=== PATIENT | male | born 1940 | race Caucasian/White ===

== ENCOUNTER → 2016-10-13 | Outpatient (CLI) | payer BC ==
[~2016-10-13] VITALS: Ht 167.6 cm; Wt 73.2 kg
[~2016-10-13] MED LIST: AMLODIPINE BESY10 MG PO; CALCITRIOL0.25 MCG PO; LO-DOSE ASPIRIN81 M2 PO; NABI650T PO; PRAVASTATIN SOD80 MG PO; VITAMIN D31000 UNIT PO
== END | disposition home or self-care (01) ==
LOC: OPR 07:53 → EDSTATUS 09:00
PROC: 0TB13ZX Excision of Left Kidney, Percutaneous Approach, Diagnostic (ICD-10-PCS; principal; 2016-10-13)
DX: R80.9 Proteinuria, unspecified (principal)
CPT/HCPCS: 77012; 88305 90; 88313 90; 88346 90; 88348 90; J3010

== ENCOUNTER → 2016-12-10 | Outpatient (CLI) | payer BC | END | disposition home or self-care (01) | LOC: CDC 13:32 | DX: R94.31 Abnormal electrocardiogram [ECG] [EKG] (principal); Z01.810 Encounter for preprocedural cardiovascular examination | CPT/HCPCS: 93000 ==

== ENCOUNTER 2016-12-31 10:40 | Day surgery (SDC) | payer BC ==
[~2016-12-31] VITALS: Ht 165.1 cm; Wt 71.7 kg
[~2016-12-31 10:40] MED LIST changes: +ACTHAR H.P80 UNIT/1 IM; +DOXAZOSIN MESYLA2 MG PO
[2016-12-31 11:07] VITALS: BP 147/76
[2016-12-31 11:27] LABS: HEMATOCRIT 36.3 % (38.0-50.0); MCH 27.8 PG (29.0-34.0); MCHC 33.1 G/DL (30.0-36.0); MEAN PLAT.VOLUME 9.6 uM^3 (9.0-12.4); PLATELET COUNT 303 K/uL (156-360); RBC DIS.WIDTH-CV 14.7 % (11.8-14.6); RBC DIS.WIDTH-SD 45.3 % (39-53); RED BLOOD COUNT 4.32 M/uL (4.00-5.50); WHITE BLOOD COUNT 11.3 K/uL (4.1-10.2)
[2016-12-31 11:53] LABS: ANION GAP 12 MEQ/L (2-14); CHLORIDE 107 MEQ/L (99-109); GFR ESTIMATE (CALCULATED) 11 mL/min/; GLUCOSE 165 mg/dL (70-99); POTASSIUM 4.2 MEQ/L (3.7-5.4); SAMPLE HEMOLYSIS CHECK 0; SAMPLE ICTERIC CHECK 0; SAMPLE LIPEMIA CHECK 0; SODIUM 142 MEQ/L (136-147); UREA NITROGEN (BUN) 52 mg/dL (9-23)
[2016-12-31 15:40] VITALS: BP 167/79
[2016-12-31 16:42] VITALS: BP 134/79
== END 2016-12-31 16:49 | disposition home or self-care (01) ==
LOC: SDC 10:40
PROVIDERS: Surgery
DX: I12.0 Hypertensive chronic kidney disease with stage 5 chronic kidney disease or end stage renal disease (principal); N18.6 End stage renal disease; Z87.891 Personal history of nicotine dependence; Z79.82 Long term (current) use of aspirin
CPT/HCPCS: 80048; 85027; J0131; J0690; J1100; J1644; J2405; J2720; J3010

== ENCOUNTER 2017-02-06 00:26 | Inpatient (IN) | payer BC ==
[2017-02-06] VITALS (21 sets, daily range): BP systolic 115–148; BP diastolic 57–86
[~2017-02-06] VITALS: Ht 165.1 cm; Wt 65.2 kg
[~2017-02-06 00:26] MED LIST changes: -ACTHAR H.P80 UNIT/1 IM; +ACTHAR H.P80 UNIT/1 SC
[2017-02-06 01:40] LABS: HEMATOCRIT 30.4 % (38.0-50.0); MCH 28.6 PG (29.0-34.0); MCHC 32.9 G/DL (30.0-36.0); MCV 86.9 FL (86-99); MEAN PLAT.VOLUME 11.1 uM^3 (9.0-12.4); PLATELET COUNT 212 K/uL (156-360); RBC DIS.WIDTH-CV 15.8 % (11.8-14.6); RBC DIS.WIDTH-SD 50.1 % (39-53); WHITE BLOOD COUNT 19.2 K/uL (4.1-10.2)
[2017-02-06 01:49] LABS: CHLORIDE 103 mEq/L (99-109); POTASSIUM 4.7 mEq/L (3.7-5.4); SODIUM 138 mEq/L (136-147)
[2017-02-06 01:50] LABS: CARBON DIOXIDE (BICARBONATE) 17.9 MEQ/L (20-31)
[2017-02-06 01:51] LABS: GLUCOSE 173 mg/dL (70-99)
[2017-02-06 01:52] LABS: D-DIMER ELISA 1.26 mg/L FEU (< 0.57)
[2017-02-06 01:52] LABS: ANION GAP 19 MEQ/L (2-14)
[2017-02-06 01:54] LABS: GFR ESTIMATE (CALCULATED) 9 mL/min/
[2017-02-06 01:57] LABS: UREA NITROGEN (BUN) 117 mg/dL (9-23)
[2017-02-06 02:00] LABS: BASE EXCESS -8.3 mEq/L (-3 to +3); CARBOXY HGB 0.8 % (0-5); COMMENTS - BLOOD GASES A+C+; DEVICE 840VENT; FI02 100 %; METHEMOGLOBIN 0.9 % (0-1.5); MODE SPONT; PCO2 29 mm Hg (35-45); PO2 516 mm Hg (80-100); SITE LR; pH 7.35 (7.35-7.45)
[2017-02-06 02:01] LABS: PEEP 5 CM/H20; PRES. SUPPORT 10 CM/H2O; TOTAL RESP RATE 22 resp/min
[2017-02-06 02:03] LABS: TROP-I INTERPRETATION NEGATIVE; TROPONIN-I 0.06 ng/mL (0.0-0.30)
[2017-02-06 04:59] LABS: METH RESISTANT S AUREUS PCR NEGATIVE (NEGATIVE)
[2017-02-06 05:30] LABS: PROBE CHECK PASS; SPECIMEN PROCESSING CONTROL PASS
[2017-02-06 06:24] LABS: HEMATOCRIT 29.4 % (38.0-50.0); MCH 28.4 PG (29.0-34.0); MCHC 32.3 G/DL (30.0-36.0); PLATELET COUNT 186 K/uL (156-360); RBC DIS.WIDTH-CV 15.8 % (11.8-14.6); RBC DIS.WIDTH-SD 51.2 % (39-53); RED BLOOD COUNT 3.34 M/uL (4.00-5.50); WHITE BLOOD COUNT 17.6 K/uL (4.1-10.2)
[2017-02-06 06:46] LABS: POINT-OF-CARE METER ID UU14174217
[2017-02-06 06:47] LABS: TROP-I INTERPRETATION NEGATIVE; TROPONIN-I 0.05 ng/mL (0.0-0.30)
[2017-02-06 07:00] LABS: ANION GAP 23 MEQ/L (2-14); CHLORIDE 100 MEQ/L (99-109); GFR ESTIMATE (CALCULATED) 8 mL/min/; GLUCOSE 239 mg/dL (70-99); MAGNESIUM 2.7 mg/dl (1.3-2.7); POTASSIUM 4.8 MEQ/L (3.7-5.4); SAMPLE HEMOLYSIS CHECK 0; SAMPLE ICTERIC CHECK 0; SAMPLE LIPEMIA CHECK 0; SODIUM 137 MEQ/L (136-147)
[2017-02-06 07:03] LABS: UREA NITROGEN (BUN) 111 mg/dL (9-23)
[2017-02-06 13:40] LABS: TROP-I INTERPRETATION NEGATIVE; TROPONIN-I 0.05 ng/mL (0.0-0.30)
[2017-02-06 19:22] LABS: TROP-I INTERPRETATION NEGATIVE; TROPONIN-I 0.04 ng/mL (0.0-0.30)
[2017-02-06 23:40] LABS: POINT-OF-CARE USER ID PHATLC
[2017-02-07] VITALS (16 sets, daily range): BP systolic 102–145; BP diastolic 58–86
[2017-02-07 06:23] LABS: HEMATOCRIT 27.2 % (38.0-50.0); MCH 29.3 PG (29.0-34.0); MCHC 34.2 G/DL (30.0-36.0); MCV 85.8 FL (86-99); MEAN PLAT.VOLUME 11.7 uM^3 (9.0-12.4); PLATELET COUNT 213 K/uL (156-360); RBC DIS.WIDTH-CV 15.9 % (11.8-14.6); RBC DIS.WIDTH-SD 50.2 % (39-53); RED BLOOD COUNT 3.17 M/uL (4.00-5.50); WHITE BLOOD COUNT 18.4 K/uL (4.1-10.2)
[2017-02-07 06:24] LABS: POINT-OF-CARE METER ID UU13113803; POINT-OF-CARE USER ID PHATLC
[2017-02-07 07:12] LABS: ANION GAP 21 MEQ/L (2-14); CHLORIDE 101 MEQ/L (99-109); GFR ESTIMATE (CALCULATED) 8 mL/min/; GLUCOSE 170 mg/dL (70-99); MAGNESIUM 2.8 mg/dl (1.3-2.7); POTASSIUM 4.2 MEQ/L (3.7-5.4); SAMPLE HEMOLYSIS CHECK 0; SAMPLE ICTERIC CHECK 0; SAMPLE LIPEMIA CHECK 0; SODIUM 139 MEQ/L (136-147); UREA NITROGEN (BUN) 121 mg/dL (9-23)
[2017-02-07 11:55] LABS: AHBS INDEX 0.61; HEPATITIS B SURFACE ANTIBODY Nonreactive
[2017-02-07 11:58] LABS: POINT-OF-CARE METER ID UU13113803
[2017-02-07 12:22] LABS: POINT-OF-CARE METER ID UU14174217
[2017-02-07 16:15] LABS: POINT-OF-CARE METER ID UU13113748; POINT-OF-CARE USER ID 606021424
[2017-02-07 21:10] LABS: POINT-OF-CARE METER ID UU13113698
[2017-02-08 04:40] VITALS: BP 141/73
[2017-02-08 06:00] LABS: HEMATOCRIT 28.5 % (38.0-50.0); MCH 29.4 PG (29.0-34.0); MCV 86.4 FL (86-99); MEAN PLAT.VOLUME 10.8 uM^3 (9.0-12.4); PLATELET COUNT 227 K/uL (156-360); RBC DIS.WIDTH-CV 15.8 % (11.8-14.6); WHITE BLOOD COUNT 18.3 K/uL (4.1-10.2)
[2017-02-08 06:32] LABS: ANION GAP 16 MEQ/L (2-14); CHLORIDE 103 MEQ/L (99-109); GLUCOSE 156 mg/dL (70-99); POTASSIUM 3.9 MEQ/L (3.7-5.4); SAMPLE HEMOLYSIS CHECK 0; SAMPLE ICTERIC CHECK 0; SAMPLE LIPEMIA CHECK 0; SODIUM 144 MEQ/L (136-147); UREA NITROGEN (BUN) 78 mg/dL (9-23)
[2017-02-08 06:33] LABS: GFR ESTIMATE (CALCULATED) 11 mL/min/; MAGNESIUM 2.3 mg/dl (1.3-2.7)
[2017-02-08 12:00] VITALS: BP 139/75
[2017-02-08] MEDS ORDERED: BYSTOLIC5 MG PO (15:25)
[2017-02-08] MEDS ORDERED: CRANBERRY 4001 EAC1 PO (15:25)
[2017-02-08 16:34] LABS: POINT-OF-CARE METER ID UU13113698; POINT-OF-CARE USER ID ENVKC36
[2017-02-08 17:27] VITALS: BP 136/64
[2017-02-08 19:30] VITALS: BP 138/66
[2017-02-08 20:50] LABS: POINT-OF-CARE METER ID UU13113698
[2017-02-08 23:15] VITALS: BP 127/69
[2017-02-09 05:00] VITALS: BP 132/74
[2017-02-09 06:22] LABS: HEMATOCRIT 30.1 % (38.0-50.0); MCH 29.2 PG (29.0-34.0); MCHC 33.6 G/DL (30.0-36.0); MEAN PLAT.VOLUME 10.9 uM^3 (9.0-12.4); NRBC (%) 0.1 /100 WBC (0-0); PLATELET COUNT 226 K/uL (156-360); RBC DIS.WIDTH-CV 15.9 % (11.8-14.6); RBC DIS.WIDTH-SD 50.9 % (39-53); RED BLOOD COUNT 3.46 M/uL (4.00-5.50); WHITE BLOOD COUNT 16.2 K/uL (4.1-10.2)
[2017-02-09 06:44] LABS: ANION GAP 16 MEQ/L (2-14); CHLORIDE 99 MEQ/L (99-109); GFR ESTIMATE (CALCULATED) 13 mL/min/; GLUCOSE 160 mg/dL (70-99); HDL CHOLESTEROL 38 MG/DL (Desirable>=40); LDL CHOLESTEROL 62 mg/dL (Desirable<100); NON-HDL CHOLESTEROL 97 mg/dL (Desirable<160); POTASSIUM 3.8 MEQ/L (3.7-5.4); SAMPLE HEMOLYSIS CHECK 0; SAMPLE ICTERIC CHECK 0; SAMPLE LIPEMIA CHECK 0; SODIUM 140 MEQ/L (136-147); TOTAL CHOLESTEROL 135 mg/dL (Desirable<200); TRIGLYCERIDES 173 MG/DL (Normal: <150); UREA NITROGEN (BUN) 52 mg/dL (9-23)
[2017-02-09 07:16] VITALS: BP 141/80
[2017-02-09 07:33] LABS: Estimated Average Glucose 183 mg/dL (70-123)
[2017-02-09 08:15] LABS: POINT-OF-CARE USER ID ENVKC36
[2017-02-09] MEDS ORDERED: AUGMENTIN500 MG PO (09:51)
[2017-02-09] MEDS ORDERED: LASIX40 MG PO (09:51)
[2017-02-09] MEDS ORDERED: JANUVIA25 MG PO (09:51)
[2017-02-09 11:36] VITALS: BP 144/63
[2017-02-09 11:56] LABS: POINT-OF-CARE USER ID ENVKC36
== END 2017-02-09 13:09 | disposition home or self-care (01) | DRG 190 ==
LOC: EME 00:26 → 4WEST 02:24 → EDOF 02:24 → 4WEST 03:31 → 4EAST 02-07 18:11
PROVIDERS: Emergency Medicine; Hospitalist; Internal Medicine; Internal Medicine Nephrology
PROC: 5A1D60Z (ICD-10-PCS; principal; 2017-02-07)
DX: J44.0 Chronic obstructive pulmonary disease with (acute) lower respiratory infection (principal); J18.9 Pneumonia, unspecified organism; J96.01 Acute respiratory failure with hypoxia; N18.6 End stage renal disease; N17.9 Acute kidney failure, unspecified; E11.22 Type 2 diabetes mellitus with diabetic chronic kidney disease; E87.8 Other disorders of electrolyte and fluid balance, not elsewhere classified; E11.65 Type 2 diabetes mellitus with hyperglycemia; I12.0 Hypertensive chronic kidney disease with stage 5 chronic kidney disease or end stage renal disease; J81.1 Chronic pulmonary edema; J44.1 Chronic obstructive pulmonary disease with (acute) exacerbation; J84.10 Pulmonary fibrosis, unspecified; D63.1 Anemia in chronic kidney disease; E87.2 Acidosis; E87.70 Fluid overload, unspecified; Z99.2 Dependence on renal dialysis; Z79.84 Long term (current) use of oral hypoglycemic drugs; Z87.891 Personal history of nicotine dependence
CPT/HCPCS: 36600; 71010; 71020; 80048; 80048 91; 80061; 82803; 82948; 83036; 83605; 83735; 83880; 84100; 84484; 85027; 85379; 86706; 87040; 87340; 87641; 93005; 94002; 94640 76; 94799; 99202; 99281; 99285; J0456; J0696; J1100; J1644; J1815; J1940; J2543; J7050; S0028

== ENCOUNTER 2017-02-26 22:05 | Inpatient (IN) | payer BC ==
[~2017-02-26] VITALS: Ht 177.8 cm; Wt 86.3 kg
[~2017-02-26 22:05] MED LIST changes: +AUGMENTIN500 MG PO; +BYSTOLIC5 MG PO; +CRANBERRY 4001 EAC1 PO; +JANUVIA25 MG PO; +LASIX40 MG PO
[2017-02-27 00:09] LABS: INTER. NORMALIZED RATIO 1.2; PROTHROMBIN TIME 12.1 (9.2-11.2)
[2017-02-27 00:12] LABS: HEMATOCRIT 30.1 % (38.0-50.0); MCH 28.5 PG (29.0-34.0); MCHC 32.2 G/DL (30.0-36.0); MCV 88.5 FL (86-99); MEAN PLAT.VOLUME 8.9 uM^3 (9.0-12.4); PLATELET COUNT 467 K/uL (156-360); RBC DIS.WIDTH-CV 13.9 % (11.8-14.6); RBC DIS.WIDTH-SD 44.7 % (39-53); WHITE BLOOD COUNT 12.2 K/uL (4.1-10.2)
[2017-02-27 00:13] LABS: CHLORIDE 95 mEq/L (99-109); POTASSIUM 3.7 mEq/L (3.7-5.4); SODIUM 138 mEq/L (136-147)
[2017-02-27 00:16] LABS: GLUCOSE 140 mg/dL (70-99)
[2017-02-27 00:17] LABS: ANION GAP 13 MEQ/L (2-14)
[2017-02-27 00:18] LABS: TOTAL BILIRUBIN 0.3 mg/dL (0.0-1.0)
[2017-02-27 00:19] LABS: ALKALINE PHOSPHATASE 84 IU/L (3-129); GFR ESTIMATE (CALCULATED) 13 mL/min/
[2017-02-27 00:20] LABS: UREA NITROGEN (BUN) 21 mg/dL (9-23)
[2017-02-27 00:23] LABS: LIPASE 94 U/L (1.0-51.0)
[2017-02-27 00:59] LABS: ADD MIUA? YES
[2017-02-27 01:00] LABS: BILIRUBIN NEGATIVE; BLOOD NEGATIVE; COLOR YELLOW ((YELLOW)); GLUCOSE (STRIP) NEGATIVE; KETONES NEGATIVE; LEUKOCYTES NEGATIVE; NITRITE NEGATIVE; PH, URINE 8.5 (5-8); PROTEIN (STRIP) 100; UROBILINOGEN 0.2 MG/DL (0.2-1.0)
[2017-02-27 01:09] LABS: BACTERIA NONE SEEN /HPF; CASTS NONE SEEN /LPF; CRYSTALS NONE SEEN; EPITHELIAL CELLS RARE /HPF; MUCUS NONE SEEN /LPF; RED BLOOD CELLS NONE SEEN /HPF (0-5); UCUL ADDED? NO; WHITE BLOOD CELLS 0-5 /HPF (0-5)
[2017-02-27 09:25] VITALS: BP 146/81
[2017-02-27 09:35] LABS: HEMATOCRIT 28.7 % (38.0-50.0); MCH 28.5 PG (29.0-34.0); MCHC 32.4 G/DL (30.0-36.0); MEAN PLAT.VOLUME 8.8 uM^3 (9.0-12.4); PLATELET COUNT 454 K/uL (156-360); RBC DIS.WIDTH-SD 44.8 % (39-53); RED BLOOD COUNT 3.26 M/uL (4.00-5.50)
[2017-02-27 09:44] LABS: INTER. NORMALIZED RATIO 1.3; PTT 41.5 (25-32)
[2017-02-27 09:55] LABS: ALKALINE PHOSPHATASE 66 IU/L (3-129); ANION GAP 12 MEQ/L (2-14); CHLORIDE 93 MEQ/L (99-109); GFR ESTIMATE (CALCULATED) 12 mL/min/; GLUCOSE 188 mg/dL (70-99); POTASSIUM 3.6 MEQ/L (3.7-5.4); SAMPLE HEMOLYSIS CHECK 0; SAMPLE ICTERIC CHECK 0; SAMPLE LIPEMIA CHECK 0; SODIUM 135 MEQ/L (136-147); TOTAL BILIRUBIN 0.3 MG/DL (0.0-1.0); UREA NITROGEN (BUN) 24 mg/dL (9-23)
[2017-02-27 11:57] LABS: PSA FREE 2.93 ng/mL
[2017-02-27 12:49] VITALS: BP 132/76
[2017-02-27 12:59] LABS: POINT-OF-CARE METER ID UU14174225
[2017-02-27 15:00] VITALS: BP 152/79
[2017-02-27 18:55] VITALS: BP 144/71
[2017-02-27] MEDS ORDERED: LOW DOSE ASPIRI81 M1 PO (19:34)
[2017-02-27 21:32] LABS: POINT-OF-CARE METER ID UU14174225
[2017-02-28 00:15] VITALS: BP 132/66
[2017-02-28 06:36] LABS: HEMATOCRIT 29.2 % (38.0-50.0); MCH 28.5 PG (29.0-34.0); MCHC 32.5 G/DL (30.0-36.0); MCV 87.7 FL (86-99); MEAN PLAT.VOLUME 8.7 uM^3 (9.0-12.4); PLATELET COUNT 447 K/uL (156-360); RBC DIS.WIDTH-SD 45.1 % (39-53); RED BLOOD COUNT 3.33 M/uL (4.00-5.50); WHITE BLOOD COUNT 9.7 K/uL (4.1-10.2)
[2017-02-28 07:00] LABS: ANION GAP 13 MEQ/L (2-14); CHLORIDE 98 MEQ/L (99-109); GFR ESTIMATE (CALCULATED) 9 mL/min/; GLUCOSE 134 mg/dL (70-99); IRON 51 MCG/DL (35-150); SAMPLE HEMOLYSIS CHECK 0; SAMPLE ICTERIC CHECK 0; SAMPLE LIPEMIA CHECK 0; SODIUM 140 MEQ/L (136-147); UREA NITROGEN (BUN) 32 mg/dL (9-23)
[2017-02-28 07:28] VITALS: BP 106/59
[2017-02-28 08:16] LABS: ABS NEUTROPHIL COUNT 6.6; EOSINOPHIL ABS CT 0.6; EOSINOPHILS 6.2 % (0-5.0); INSTRUMENT ABS NEUTROPHIL CT 5.4 K/uL; LYMPHOCYTES 14.9 % (15.0-45.0); METAMYELOCYTES 1.8 %; MYELOCYTES 6.1 %; OVALOCYTES 1+; PLAT.SUFFICIENCY INCREASED; SEG.NEUTROPHILS 68.4 % (46.0-76.0)
[2017-02-28 11:08] LABS: POINT-OF-CARE METER ID UU14188625
[2017-02-28] MEDS ORDERED: TAMSULOSIN HCL0.4 MG PO (14:13)
[2017-02-28] MEDS ORDERED: BYSTOLIC5 MG PO (14:17)
[2017-02-28 15:49] VITALS: BP 104/54
== END 2017-02-28 18:20 | disposition home or self-care (01) | DRG 725 ==
LOC: EME 22:05 → 5SOUTH 02-27 05:07 → EDOF 02-27 05:07 → 5SOUTH 02-27 07:01
PROVIDERS: Emergency Medicine; Internal Medicine; Internal Medicine Nephrology
DX: N40.1 Benign prostatic hyperplasia with lower urinary tract symptoms (principal); I71.4 Abdominal aortic aneurysm, without rupture; I12.0 Hypertensive chronic kidney disease with stage 5 chronic kidney disease or end stage renal disease; Z87.891 Personal history of nicotine dependence; N18.6 End stage renal disease; Z99.2 Dependence on renal dialysis; E78.00 Pure hypercholesterolemia, unspecified; R32 Unspecified urinary incontinence; E11.22 Type 2 diabetes mellitus with diabetic chronic kidney disease; R33.8 Other retention of urine; J44.9 Chronic obstructive pulmonary disease, unspecified
CPT/HCPCS: 71010; 74176; 80053; 80069; 81003; 82948; 83540; 83605; 83690; 84145 90; 84154 GA; 84466; 85025; 85027; 85610; 85730; 87040; 87086; 99281; 99285; G0103; J1644; J1815; J1956

== ENCOUNTER 2017-04-12 20:23 | Inpatient (IN) | payer BC ==
[~2017-04-12] VITALS: Ht 165.1 cm; Wt 69.0 kg
[~2017-04-12 20:23] MED LIST changes: +FERRIC CITRATE PO; +FLOMAX0.4 MG PO; +LOW DOSE ASPIRI81 M1 PO; +RENAL VITAMIN0.8 MG PO; +TAMSULOSIN HCL0.4 MG PO
[2017-04-13 06:08] LABS: MCH 28.3 PG (29.0-34.0); MCHC 31.8 G/DL (30.0-36.0); MCV 88.8 FL (86-99); MEAN PLAT.VOLUME 8.6 uM^3 (9.0-12.4); PLATELET COUNT 309 K/uL (156-360); RBC DIS.WIDTH-CV 14.9 % (11.8-14.6); RBC DIS.WIDTH-SD 48.3 % (39-53); RED BLOOD COUNT 4.28 M/uL (4.00-5.50)
[2017-04-13 06:15] LABS: INTER. NORMALIZED RATIO 1.1
[2017-04-13 06:16] LABS: CHLORIDE 99 mEq/L (99-109); POTASSIUM 4.3 mEq/L (3.7-5.4); SODIUM 140 mEq/L (136-147)
[2017-04-13 06:18] LABS: GLUCOSE 152 mg/dL (70-99); PTT 40.4 SEC (25-37)
[2017-04-13 06:19] LABS: ANION GAP 17 MEQ/L (2-14)
[2017-04-13 06:22] LABS: GFR ESTIMATE (CALCULATED) 10 mL/min/; UREA NITROGEN (BUN) 32 mg/dL (9-23)
[2017-04-13 06:43] VITALS: BP 143/77
[2017-04-13 07:27] LABS: METH RESISTANT S AUREUS PCR NEGATIVE (NEGATIVE)
[2017-04-13 07:28] LABS: PROBE CHECK PASS; SPECIMEN PROCESSING CONTROL PASS
[2017-04-13 10:19] LABS: POINT-OF-CARE METER ID UU13113675
[2017-04-13 11:15] LABS: HEMATOCRIT 33.2 % (38.0-50.0); MCH 29.8 PG (29.0-34.0); MCHC 32.5 G/DL (30.0-36.0); MCV 91.5 FL (86-99); MEAN PLAT.VOLUME 8.8 uM^3 (9.0-12.4); PLATELET COUNT 245 K/uL (156-360); RBC DIS.WIDTH-CV 15.3 % (11.8-14.6); RBC DIS.WIDTH-SD 50.7 % (39-53); RED BLOOD COUNT 3.63 M/uL (4.00-5.50); WHITE BLOOD COUNT 9.7 K/uL (4.1-10.2)
[2017-04-13 11:49] LABS: ANION GAP 12 MEQ/L (2-14); CHLORIDE 102 MEQ/L (99-109); CREATINE KINASE 35 IU/L (1-294); GFR ESTIMATE (CALCULATED) 10 mL/min/; GLUCOSE 131 mg/dL (70-99); POTASSIUM 4.3 MEQ/L (3.7-5.4); SAMPLE HEMOLYSIS CHECK 0; SAMPLE ICTERIC CHECK 0; SAMPLE LIPEMIA CHECK 0; SODIUM 140 MEQ/L (136-147); TOTAL CK 35 IU/L (1-294); UREA NITROGEN (BUN) 31 mg/dL (9-23)
[2017-04-13 11:57] VITALS: BP 127/59
[2017-04-13 12:23] LABS: CK-MB 0.7 ng/mL (0.0-4.9)
[2017-04-13] MEDS ORDERED: HYDROCODON-ACE1 EAC7 PO (16:33)
[2017-04-13 17:14] VITALS: BP 154/72
[2017-04-13 20:00] VITALS: BP 139/67
[2017-04-13 21:07] LABS: POINT-OF-CARE METER ID UU13113781
[2017-04-13 23:15] VITALS: BP 161/73
[2017-04-14 04:30] VITALS: BP 132/68
[2017-04-14 05:34] LABS: HEMATOCRIT 35.5 % (38.0-50.0); MCH 29.7 PG (29.0-34.0); MCHC 32.7 G/DL (30.0-36.0); MEAN PLAT.VOLUME 9.5 uM^3 (9.0-12.4); PLATELET COUNT 293 K/uL (156-360); RBC DIS.WIDTH-CV 15.3 % (11.8-14.6); WHITE BLOOD COUNT 15.8 K/uL (4.1-10.2)
[2017-04-14 05:58] LABS: ANION GAP 16 MEQ/L (2-14); CHLORIDE 96 MEQ/L (99-109); CREATINE KINASE 47 IU/L (1-294); GFR ESTIMATE (CALCULATED) 7 mL/min/; GLUCOSE 156 mg/dL (70-99); SAMPLE HEMOLYSIS CHECK 0; SAMPLE ICTERIC CHECK 0; SAMPLE LIPEMIA CHECK 0; SODIUM 136 MEQ/L (136-147); TOTAL CK 47 IU/L (1-294); UREA NITROGEN (BUN) 42 mg/dL (9-23)
[2017-04-14 07:08] LABS: CK-MB 1.8 ng/mL (0.0-4.9)
[2017-04-14 07:25] VITALS: BP 132/86
[2017-04-14 07:32] LABS: POINT-OF-CARE METER ID UU13113803
== END 2017-04-14 09:47 | disposition home or self-care (01) | DRG 269 ==
LOC: ENRESERV 20:23 → 2SOUTH 04-13 05:19 → ENRESERV 04-13 06:57 → 2SOUTH 04-13 09:01 → 4EAST 04-13 11:14 → 2SOUTH 04-13 12:40 → ENPENDDIS 04-14 → 4EAST 04-14 09:47
PROVIDERS: Surgery
PROC: 04V03DZ Restriction of Abdominal Aorta with Intraluminal Device, Percutaneous Approach (ICD-10-PCS; principal; 2017-04-13)
DX: I71.4 Abdominal aortic aneurysm, without rupture (principal); I12.9 Hypertensive chronic kidney disease with stage 1 through stage 4 chronic kidney disease, or unspecified chronic kidney disease; N18.9 Chronic kidney disease, unspecified; E11.9 Type 2 diabetes mellitus without complications; J44.9 Chronic obstructive pulmonary disease, unspecified; Z87.891 Personal history of nicotine dependence
CPT/HCPCS: 71020; 80048; 80048 91; 82550; 82553; 82948; 85027; 85610; 85730; 86900; 86901; 87641; 93005; C1725; C1769; C1887; C1892; C1894; J0690; J1170; J1644; J1815; J2405; J2710; J2720; J3010

== ENCOUNTER 2017-05-04 04:31 | Inpatient (IN) | payer BC ==
[~2017-05-04] VITALS: Ht 165.1 cm; Wt 62.1 kg
[~2017-05-04 04:31] MED LIST changes: +HYDROCODON-ACE1 EAC7 PO
[2017-05-04 05:32] LABS: CHLORIDE 97 mEq/L (99-109); POTASSIUM 4.7 mEq/L (3.7-5.4); SODIUM 140 mEq/L (136-147)
[2017-05-04 05:33] LABS: GLUCOSE 161 mg/dL (70-99); HEMATOCRIT 31.3 % (38.0-50.0); MCH 28.2 PG (29.0-34.0); MCHC 31.9 G/DL (30.0-36.0); MCV 88.4 FL (86-99); MEAN PLAT.VOLUME 9.5 uM^3 (9.0-12.4); PLATELET COUNT 595 K/uL (156-360); RBC DIS.WIDTH-CV 15.3 % (11.8-14.6); RBC DIS.WIDTH-SD 49.4 % (39-53); RED BLOOD COUNT 3.54 M/uL (4.00-5.50); WHITE BLOOD COUNT 14.3 K/uL (4.1-10.2)
[2017-05-04 05:35] LABS: ANION GAP 20 MEQ/L (2-14)
[2017-05-04 05:37] LABS: GFR ESTIMATE (CALCULATED) 9 mL/min/
[2017-05-04 05:38] LABS: UREA NITROGEN (BUN) 34 mg/dL (9-23)
[2017-05-04 05:44] LABS: TROP-I INTERPRETATION INDETERMINATE; TROPONIN-I 0.34 ng/mL (0.0-0.30)
[2017-05-04] MEDS ORDERED: FERRIC CITRATE210 MG PO (07:16)
[2017-05-04 08:48] LABS: TROP-I INTERPRETATION INDETERMINATE; TROPONIN-I 0.34 ng/mL (0.0-0.30)
[2017-05-04 09:00] VITALS: BP 130/68
[2017-05-04 11:24] VITALS: BP 120/56
[2017-05-04 11:53] LABS: POINT-OF-CARE METER ID UU13113781
[2017-05-04 15:27] LABS: TROP-I INTERPRETATION INDETERMINATE; TROPONIN-I 0.37 ng/mL (0.0-0.30)
[2017-05-04 17:00] VITALS: BP 129/58
[2017-05-04 17:21] LABS: POINT-OF-CARE METER ID UU13113781; POINT-OF-CARE USER ID NUTSLF44
[2017-05-04 19:10] VITALS: BP 120/65
[2017-05-04 20:32] LABS: TROP-I INTERPRETATION INDETERMINATE; TROPONIN-I 0.31 ng/mL (0.0-0.30)
[2017-05-04 21:20] LABS: POINT-OF-CARE METER ID UU14174216
[2017-05-04 21:33] LABS: ADD MIUA? YES; BILIRUBIN NEGATIVE; BLOOD NEGATIVE; COLOR YELLOW ((YELLOW)); GLUCOSE (STRIP) >=500; KETONES NEGATIVE; LEUKOCYTES NEGATIVE; NITRITE NEGATIVE; PROTEIN (STRIP) 100; UROBILINOGEN 0.2 MG/DL (0.2-1.0)
[2017-05-04 21:45] LABS: BACTERIA NONE SEEN /HPF; EPITHELIAL CELLS RARE /HPF; MUCUS NONE SEEN /LPF; RED BLOOD CELLS 0-5 /HPF (0-5); UCUL ADDED? NO; WHITE BLOOD CELLS 0-5 /HPF (0-5)
[2017-05-05 00:01] VITALS: BP 130/69
[2017-05-05 05:24] LABS: EOSINOPHIL (%) 0 % (0-5); HEMATOCRIT 26.8 % (38.0-50.0); IMMATURE GRANULOCYTE (%) 0.9 % (0.0-0.7); IMMATURE GRANULOCYTE COUNT 0.1 K/uL; INSTRUMENT ABS NEUTROPHIL CT 13.6 K/uL; LYMPHOCYTE COUNT 0.9 K/uL (1.0-2.8); MCHC 32.1 G/DL (30.0-36.0); MCV 87.3 FL (86-99); MEAN PLAT.VOLUME 9.8 uM^3 (9.0-12.4); MONOCYTE (%) 1.6 % (3-12); MONOCYTE COUNT 0.2 K/uL (0-0.8); NEUTROPHIL (%) 91.2 % (45-76); NEUTROPHIL COUNT 13.6 K/uL (1.8-6.4); PLATELET COUNT 584 K/uL (156-360); RBC DIS.WIDTH-CV 15.7 % (11.8-14.6); RBC DIS.WIDTH-SD 49.9 % (39-53); RED BLOOD COUNT 3.07 M/uL (4.00-5.50); WHITE BLOOD COUNT 14.9 K/uL (4.1-10.2)
[2017-05-05 05:44] LABS: ALKALINE PHOSPHATASE 60 IU/L (3-129); ANION GAP 16 MEQ/L (2-14); CHLORIDE 93 MEQ/L (99-109); GFR ESTIMATE (CALCULATED) 7 mL/min/; GLUCOSE 230 mg/dL (70-99); POTASSIUM 4.5 MEQ/L (3.7-5.4); SAMPLE HEMOLYSIS CHECK 0; SAMPLE ICTERIC CHECK 0; SAMPLE LIPEMIA CHECK 0; SODIUM 136 MEQ/L (136-147); TOTAL BILIRUBIN 0.3 MG/DL (0.0-1.0)
[2017-05-05 05:49] LABS: UREA NITROGEN (BUN) 59 mg/dL (9-23)
[2017-05-05 06:00] VITALS: BP 109/64
[2017-05-05 07:39] LABS: POINT-OF-CARE METER ID UU13113781
[2017-05-05 10:00] LABS: TROP-I INTERPRETATION NEGATIVE; TROPONIN-I 0.25 ng/mL (0.0-0.30)
[2017-05-05 11:00] VITALS: BP 112/62
[2017-05-05 12:31] LABS: POINT-OF-CARE METER ID UU14174216
[2017-05-05 16:00] VITALS: BP 110/59
[2017-05-05 16:15] VITALS: BP 184/88
[2017-05-05 16:37] LABS: POINT-OF-CARE METER ID UU14174216
[2017-05-05 21:29] LABS: POINT-OF-CARE METER ID UU13113781
[2017-05-05 21:30] VITALS: BP 117/68
[2017-05-06 00:37] VITALS: BP 110/74
[2017-05-06 03:47] VITALS: BP 110/58
[2017-05-06 05:46] LABS: EOSINOPHIL (%) 0 % (0-5); HEMATOCRIT 28.5 % (38.0-50.0); IMMATURE GRANULOCYTE (%) 0.8 % (0.0-0.7); IMMATURE GRANULOCYTE COUNT 0.2 K/uL; INSTRUMENT ABS NEUTROPHIL CT 20.2 K/uL; LYMPHOCYTE COUNT 1.2 K/uL (1.0-2.8); MCH 29.2 PG (29.0-34.0); MCHC 32.6 G/DL (30.0-36.0); MCV 89.6 FL (86-99); MEAN PLAT.VOLUME 9.9 uM^3 (9.0-12.4); MONOCYTE (%) 3.1 % (3-12); MONOCYTE COUNT 0.7 K/uL (0-0.8); NEUTROPHIL (%) 90.5 % (45-76); NEUTROPHIL COUNT 20.2 K/uL (1.8-6.4); PLATELET COUNT 655 K/uL (156-360); RBC DIS.WIDTH-CV 16.1 % (11.8-14.6); RBC DIS.WIDTH-SD 53.1 % (39-53); RED BLOOD COUNT 3.18 M/uL (4.00-5.50); WHITE BLOOD COUNT 22.3 K/uL (4.1-10.2)
[2017-05-06 06:24] LABS: ALKALINE PHOSPHATASE 79 IU/L (3-129); ANION GAP 16 MEQ/L (2-14); CHLORIDE 92 MEQ/L (99-109); GLUCOSE 182 mg/dL (70-99); POTASSIUM 5.1 MEQ/L (3.7-5.4); SAMPLE HEMOLYSIS CHECK 0; SAMPLE ICTERIC CHECK 0; SAMPLE LIPEMIA CHECK 0; SODIUM 136 MEQ/L (136-147); UREA NITROGEN (BUN) 43 mg/dL (9-23)
[2017-05-06 06:26] LABS: GFR ESTIMATE (CALCULATED) 12 mL/min/; TOTAL BILIRUBIN 0.4 MG/DL (0.0-1.0)
[2017-05-06 07:45] VITALS: BP 111/65
[2017-05-06 07:56] LABS: POINT-OF-CARE METER ID UU13113781
[2017-05-06 12:00] VITALS: BP 118/70
[2017-05-06 12:03] LABS: POINT-OF-CARE METER ID UU13113698
[2017-05-06] MEDS ORDERED: LOPRESSOR50 MG PO (13:05)
[2017-05-06] MEDS ORDERED: SPIRIVA RESPIMAT4 GM IH (13:05)
[2017-05-06] MEDS ORDERED: VENTOLIN HFA18 GM IH (13:05)
[2017-05-06] MEDS ORDERED: ADVAIR HFA120 INHALA IH (13:05)
[2017-05-06] MEDS ORDERED: LEVAQUIN500 MG PO (13:05)
== END 2017-05-06 16:57 | disposition home or self-care (01) | DRG 190 ==
LOC: EME 04:31 → EDOF 07:34 → 4EAST 07:34 → ENRESERV 07:41 → 4EAST 08:54 → ENPENDDIS 05-06 → 4EAST 05-06 16:57
PROVIDERS: Emergency Medicine; Hospitalist
PROC: 5A1D00Z (ICD-10-PCS; principal; 2017-05-05)
DX: J44.0 Chronic obstructive pulmonary disease with (acute) lower respiratory infection (principal); J18.9 Pneumonia, unspecified organism; J96.01 Acute respiratory failure with hypoxia; I24.8 Other forms of acute ischemic heart disease; I13.2 Hypertensive heart and chronic kidney disease with heart failure and with stage 5 chronic kidney disease, or end stage renal disease; E11.22 Type 2 diabetes mellitus with diabetic chronic kidney disease; N18.6 End stage renal disease; I50.32 Chronic diastolic (congestive) heart failure; Z99.2 Dependence on renal dialysis; I05.8 Other rheumatic mitral valve diseases; I49.3 Ventricular premature depolarization; I25.10 Atherosclerotic heart disease of native coronary artery without angina pectoris; D64.9 Anemia, unspecified; E78.5 Hyperlipidemia, unspecified; Z82.3 Family history of stroke; Z85.828 Personal history of other malignant neoplasm of skin; Z87.891 Personal history of nicotine dependence
CPT/HCPCS: 71020; 71250; 78582; 80048; 80053; 81003; 82948; 83605; 83880; 84484; 85025; 85027; 85379; 87040; 93005; 93306; 94640; 94640 76; 94760; 94799; 99281; 99285; A9540; A9567; J0456; J0696; J1644; J1815; J1940; J2543; J2920; J7050; J7512

== ENCOUNTER 2017-05-13 16:58 | Inpatient (IN) | payer BC ==
[~2017-05-13] VITALS: Ht 170.2 cm; Wt 66.1 kg
[~2017-05-13 16:58] MED LIST changes: +ADVAIR HFA120 INHALA IH; +FERRIC CITRATE210 MG PO; +LEVAQUIN500 MG PO; +LOPRESSOR50 MG PO; +SPIRIVA RESPIMAT4 GM IH; +VENTOLIN HFA18 GM IH
[2017-05-13 17:33] LABS: POINT-OF-CARE METER ID UU13113702
[2017-05-13 18:08] LABS: HEMATOCRIT 31.6 % (38.0-50.0); MCH 27.7 PG (29.0-34.0); MCHC 30.4 G/DL (30.0-36.0); MCV 91.1 FL (86-99); NRBC (%) 0.1 /100 WBC (0-0); RBC DIS.WIDTH-CV 17.1 % (11.8-14.6); RBC DIS.WIDTH-SD 55.9 % (39-53); RED BLOOD COUNT 3.47 M/uL (4.00-5.50)
[2017-05-13 18:17] LABS: CHLORIDE 93 mEq/L (99-109); POTASSIUM 4.9 mEq/L (3.7-5.4); SODIUM 139 mEq/L (136-147)
[2017-05-13 18:19] LABS: GLUCOSE 113 mg/dL (70-99)
[2017-05-13 18:20] LABS: ANION GAP 24 MEQ/L (2-14)
[2017-05-13 18:21] LABS: TOTAL BILIRUBIN 0.6 mg/dL (0.0-1.0)
[2017-05-13 18:22] LABS: ALKALINE PHOSPHATASE 86 IU/L (3-129)
[2017-05-13 18:23] LABS: GFR ESTIMATE (CALCULATED) 11 mL/min/
[2017-05-13 18:24] LABS: UREA NITROGEN (BUN) 29 mg/dL (9-23)
[2017-05-13 18:28] LABS: TROP-I INTERPRETATION NEGATIVE; TROPONIN-I 0.28 ng/mL (0.0-0.30)
[2017-05-13 19:01] LABS: EOSINOPHIL (%) 1.1 % (0-5); EOSINOPHIL COUNT 0.2 K/uL (0-0.3); IMMATURE GRANULOCYTE (%) 4.4 % (0.0-0.7); IMMATURE GRANULOCYTE COUNT 0.6 K/uL; INSTRUMENT ABS NEUTROPHIL CT 10.4 K/uL; LYMPHOCYTE COUNT 1.9 K/uL (1.0-2.8); MEAN PLAT.VOLUME 10.1 uM^3 (9.0-12.4); MONOCYTE (%) 6.2 % (3-12); MONOCYTE COUNT 0.9 K/uL (0-0.8); NEUTROPHIL (%) 74.5 % (45-76); NEUTROPHIL COUNT 10.4 K/uL (1.8-6.4); PLAT.SUFFICIENCY ADEQUATE
[2017-05-13 19:05] LABS: PLATELET COUNT 314 K/uL (156-360)
[2017-05-13 20:08] LABS: MAGNESIUM 2.3 mg/dL (1.3-2.7)
[2017-05-13 20:12] LABS: BASE EXCESS -10.4 mEq/L (-3 to +3); BICARBONATE 16.8 mEq/L (22-26); CARBOXY HGB 1.5 % (0-5); METHEMOGLOBIN 0.6 % (0-1.5); PCO2 41 mm Hg (35-45); PO2 174 mm Hg (80-100); pH 7.22 (7.35-7.45)
[2017-05-13 20:13] LABS: COMMENTS - BLOOD GASES A+C+; DEVICE 840; FI02 100 %; MECHANICAL RATE 16 resp/min; MODE AC; PEEP 12 CM/H20; SITE RR; TIDAL VOLUME 370 ML; TOTAL RESP RATE 17 resp/min
[2017-05-13 20:25] LABS: ADD MIUA? YES; BILIRUBIN NEGATIVE; BLOOD MODERATE; COLOR YELLOW ((YELLOW)); GLUCOSE (STRIP) 50; KETONES NEGATIVE; LEUKOCYTES NEGATIVE; NITRITE NEGATIVE; PROTEIN (STRIP) >=500; UROBILINOGEN 0.2 MG/DL (0.2-1.0)
[2017-05-13 20:40] VITALS: BP 74/38; BP 86/59
[2017-05-13 20:54] LABS: BACTERIA RARE /HPF; CASTS NONE SEEN /LPF; EPITHELIAL CELLS RARE /HPF; MUCUS NONE SEEN /LPF; RED BLOOD CELLS 15-20 /HPF (0-5); UCUL ADDED? NO; WHITE BLOOD CELLS 0-5 /HPF (0-5)
[2017-05-13 20:55] LABS: CRYSTALS NONE SEEN
[2017-05-13 21:00] VITALS: BP 65/46
[2017-05-13 21:39] LABS: BASE EXCESS -12.5 mEq/L (-3 to +3); BICARBONATE 14.4 mEq/L (22-26); CARBOXY HGB 1.7 % (0-5); COMMENTS - BLOOD GASES C+; METHEMOGLOBIN 1.5 % (0-1.5); PCO2 36 mm Hg (35-45); PO2 71 mm Hg (80-100); SITE A-LINE
[2017-05-13 21:40] LABS: DEVICE 840; FI02 50 %; MECHANICAL RATE 16 resp/min; MODE AC; PEEP 12 CM/H20; TIDAL VOLUME 370 ML; TOTAL RESP RATE 32 resp/min; pH 7.21 (7.35-7.45)
[2017-05-13 21:43] LABS: BASE EXCESS -11.8 mEq/L (-3 to +3); CARBOXY HGB 1.8 % (0-5); METHEMOGLOBIN 1.8 % (0-1.5); PCO2 45 mm Hg (35-45)
[2017-05-13 21:45] LABS: PO2 40 mm Hg (80-100); SITE VENOUS; pH 7.16 (7.35-7.45)
[2017-05-13 21:46] LABS: DEVICE 840; FI02 50 %; MECHANICAL RATE 16 resp/min; MODE AC; PEEP 12 CM/H20; TIDAL VOLUME 370 ML; TOTAL RESP RATE 32 resp/min
[2017-05-13 22:00] VITALS: BP 0/0; BP 67/37
[2017-05-13 22:06] LABS: HEMATOCRIT 24.8 % (38.0-50.0); MCH 28.3 PG (29.0-34.0); MCHC 29.4 G/DL (30.0-36.0); NRBC (%) 0.3 /100 WBC (0-0); RBC DIS.WIDTH-CV 17.2 % (11.8-14.6); RBC DIS.WIDTH-SD 60.3 % (39-53); WHITE BLOOD COUNT 16.9 K/uL (4.1-10.2)
[2017-05-13 22:13] LABS: METH RESISTANT S AUREUS PCR NEGATIVE (NEGATIVE)
[2017-05-13 22:19] LABS: PROBE CHECK PASS; SPECIMEN PROCESSING CONTROL PASS
[2017-05-13 22:27] LABS: ALKALINE PHOSPHATASE 103 IU/L (3-129); ANION GAP 23 MEQ/L (2-14); CHLORIDE 105 MEQ/L (99-109); MAGNESIUM 2.1 mg/dl (1.3-2.7); SAMPLE HEMOLYSIS CHECK 0; SAMPLE ICTERIC CHECK 0; SAMPLE LIPEMIA CHECK 0; SODIUM 141 MEQ/L (136-147); UREA NITROGEN (BUN) 27 mg/dL (9-23)
[2017-05-13 22:28] LABS: GFR ESTIMATE (CALCULATED) 13 mL/min/; GLUCOSE 62 mg/dL (70-99); POTASSIUM 6.9 MEQ/L (3.7-5.4)
[2017-05-13 22:49] LABS: ABS NEUTROPHIL COUNT 14.7; ANISOCYTOSIS 2+; ATYPICAL LYMPHOCYTE 0.9 %; BAND NEUTROPHILS 5.3 % (0-8.0); BURR CELLS 1+; EOSINOPHIL ABS CT 0.2; EOSINOPHILS 0.9 % (0-5.0); INSTRUMENT ABS NEUTROPHIL CT 12.6 K/uL; LYMPHOCYTES 6.1 % (15.0-45.0); MACROCYTES 1+; MCV 96.1 FL (86-99); MEAN PLAT.VOLUME 9.9 uM^3 (9.0-12.4); METAMYELOCYTES 2.6 %; MICROCYTOSIS 1+; MYELOCYTES 0.9 %; PLAT.SUFFICIENCY ADEQUATE; PLATELET COUNT 179 K/uL (156-360); POIKILOCYTOSIS 3+; RED BLOOD COUNT 2.58 M/uL (4.00-5.50); SEG.NEUTROPHILS 81.6 % (46.0-76.0)
[2017-05-13 23:05] LABS: TROP-I INTERPRETATION POSITIVE; TROPONIN-I 0.74 ng/mL (0.0-0.30)
[2017-05-13 23:10] LABS: INTER. NORMALIZED RATIO 2.3; PROTHROMBIN TIME 26.7 SEC (10.2-12.9)
[2017-05-13 23:12] LABS: PTT 51.4 SEC (25-37)
[2017-05-14 01:26] LABS: BASE EXCESS -18.9 mEq/L (-3 to +3); BICARBONATE 9.4 mEq/L (22-26); COMMENTS - BLOOD GASES C+; DEVICE VENT; FI02 50 %; MECHANICAL RATE 16 resp/min; METHEMOGLOBIN 1.5 % (0-1.5); MODE AC; PCO2 31 mm Hg (35-45); PO2 91 mm Hg (80-100); SITE ALINE; TOTAL RESP RATE 30 resp/min; pH 7.09 (7.35-7.45)
[2017-05-14 01:27] LABS: FIBRINOGEN 140 mg/dL (150-450)
[2017-05-14 01:27] LABS: PEEP 12 CM/H20; TIDAL VOLUME 370 ML
[2017-05-14 01:36] LABS: MAGNESIUM 2.1 mg/dL (1.3-2.7); POTASSIUM 5.6 mEq/L (3.7-5.4); SODIUM 139 mEq/L (136-147)
[2017-05-14 01:38] LABS: CHLORIDE 105 mEq/L (99-109); GLUCOSE 203 mg/dL (70-99)
[2017-05-14 01:39] LABS: ANION GAP 26 MEQ/L (2-14)
[2017-05-14 01:42] LABS: GFR ESTIMATE (CALCULATED) 11 mL/min/; UREA NITROGEN (BUN) 29 mg/dL (9-23)
[2017-05-14 01:58] LABS: D-DIMER ELISA ND ng/mLDDU (<230)
== END 2017-05-14 02:40 | disposition short-term general hospital (02) | DRG 291 ==
LOC: EME 16:58 → EDOF 19:54 → ENRESERV 19:54 → 4WEST 20:44
PROVIDERS: Emergency Medicine
PROC: 02HV33Z Insertion of Infusion Device into Superior Vena Cava, Percutaneous Approach (ICD-10-PCS; principal; 2017-05-13)
PROC: 0BH17EZ Insertion of Endotracheal Airway into Trachea, Via Natural or Artificial Opening (ICD-10-PCS; principal; 2017-05-13)
PROC: 03HY32Z Insertion of Monitoring Device into Upper Artery, Percutaneous Approach (ICD-10-PCS; principal; 2017-05-13)
PROC: 5A12012 Performance of Cardiac Output, Single, Manual (ICD-10-PCS; principal; 2017-05-13)
PROC: 5A1935Z Respiratory Ventilation, Less than 24 Consecutive Hours (ICD-10-PCS; principal; 2017-05-13)
DX: R57.0 Cardiogenic shock (principal); J96.01 Acute respiratory failure with hypoxia; I13.0 Hypertensive heart and chronic kidney disease with heart failure and stage 1 through stage 4 chronic kidney disease, or unspecified chronic kidney disease; I50.9 Heart failure, unspecified; K72.00 Acute and subacute hepatic failure without coma; K76.1 Chronic passive congestion of liver; E11.22 Type 2 diabetes mellitus with diabetic chronic kidney disease; N18.6 End stage renal disease; E87.2 Acidosis; E87.5 Hyperkalemia; R42 Dizziness and giddiness; R19.7 Diarrhea, unspecified; Z99.2 Dependence on renal dialysis; J44.9 Chronic obstructive pulmonary disease, unspecified; Z85.828 Personal history of other malignant neoplasm of skin; Z87.891 Personal history of nicotine dependence
CPT/HCPCS: 36600; 71010; 71275; 74177; 80048; 80048 91; 80053; 81003; 82330; 82803; 82948; 83605; 83735; 83880; 84100; 84443; 84484; 85025; 85025 91; 85027; 85379; 85384; 85610; 85651; 85730; 86850; 86900; 86901; 87040; 87070; 87205; 87641; 93005; 94002; 99281; 99285; C1751; C1874; J0171; J1644; J1720; J1815; J2543; J2704; J3010; J7030; J7050; J7120